=== PATIENT | female | born 1960 ===

== ENCOUNTER 2023-12-18 09:37 | Emergency (ER) | payer OTHER ==
[~2023-12-18] VITALS: Ht 157.5 cm; Wt 77.4 kg
[2023-12-18 09:39] VITALS: BP 160/74; PULSE 70; RESP 15; TEMP 98; O2SAT 99
== END 2023-12-18 12:48 | disposition left against medical advice (07) ==
LOC: ER 09:38
DX: M79.672 Pain in left foot (principal); Z53.21 Procedure and treatment not carried out due to patient leaving prior to being seen by health care provider
CPT/HCPCS: 73630